=== PATIENT | female | born 1960 | race Caucasian/White ===

== ENCOUNTER → 2018-01-16 | Outpatient (CLI) | payer BC ==
[~2018-01-16] MED LIST: ASPIRIN81 M1 PO; AUGMENTIN 875875 MG PO; CARVEDILOL6.25 MG PO; CEPHALEXIN500 M1 PO; DIFLUCAN150 MG PO; LISINOPRIL2.5 MG PO; LISINOPRIL20 MG PO; LOPRESSOR25 MG PO; METOPROLOL1 MG/ML PO; NORCO 325 MG-51 TAB PO; NORVASC10 MG PO; PEN-VEE K500 MG PO; TRAMADOL HCL50 MG PO; ULTRAM50 MG PO
== END | disposition home or self-care (01) ==
LOC: MAMMO 08:11
DX: Z12.31 Encounter for screening mammogram for malignant neoplasm of breast (principal)